=== PATIENT | male | born 1955 | race Caucasian/White ===

== ENCOUNTER 2021-01-12 11:07 | Emergency (ER) | payer OTHER, SELFPAY ==
[2021-01-12 11:05] VITALS: BP 148/91; PULSE 93; RESP 17; TEMP 36.6; O2SAT 99; BMI 26.2
[2021-01-12] MEDS: predniSONE 20 MG TABLET 60 MG PO (12:12)
--- NOTE | 2021-01-12 12:13 | ED.BACK ---
HPI - Back Pain/Injury General Chief Complaint: Back Pain/Injury Stated Complaint: Chronic back pain, increased today Time Seen by Provider: 01/12/21 11:07 Source: patient and EMS Mode of arrival: EMS Limitations: no limitations History of Present Illness HPI Narrative: 65-year-old male with extensive problems with neck and back pain, radiculopathies and prior surgeries presents by EMS because of an increased presence of pain in his lumbar region. He denies any recent trauma, fever, use of blood thinners or IV drugs. He denies loss of control of bowel or bladder. He does have some radiation of pain into both hips and more significant pain into his right leg. He denies any lower extremity weakness or footdrop. He states he is currently out of his medications was treat his chronic pain but they are at the pharmacy. He states he is here because his fiancee made him come MD Complaint: back pain Onset (ago): hour(s) Duration: constant Similar Symptoms Previously: Yes Location: lumbar spine Severity: moderate Quality: burning and stabbing Radiation: right leg Exacerbating factors: movement Associated symptoms: difficulty walking Related Data Home Medications Medication Instructions Recorded Confirmed hydrocodone-acetaminophen [[place]] 1 tab PO PRN #0 07/14/17 Previous Rx's Medication Instructions Recorded ondansetron [Zofran ODT] 4 mg SUBLINGUAL Q6HP PRN #10 odt 07/14/17 prednisone See Rx Instructions .ROUTE 01/12/21 .COMPLEX #30 tab Allergies Allergy/AdvReac Type Severity Reaction Status Date / Time Sulfa (Sulfonamide Allergy Unknown ITCHING Verified 01/12/21 11:10 Antibiotics) [SULFA (SULFONAMIDE ANTIBIOTICS)] morphine [MORPHINE] AdvReac Unknown COMBATIVE Verified 01/12/21 11:10 Review of Systems Constitutional Constitutional: Denies chills, Denies fatigue, Denies fever(s), Denies frequent falls, Denies lethargy and Denies weakness Eyes Eyes: Denies change in vision, Denies eye discharge, Denies irritation and Denies loss of vision ENT Ears, Nose, Mouth, and Throat: Denies change in voice, Denies dizziness, Denies neck pain, Denies sore throat and Denies throat swelling Cardiovascular Cardiovascular: Denies chest pain, Denies irregular heart rhythm, Denies lightheadedness, Denies palpitations, Denies dyspnea, Denies dyspnea on exertion and Denies orthopnea Respiratory Respiratory: Denies cough, Denies dyspnea, Denies dyspnea on exertion and Denies wheezing Gastrointestinal Gastrointestinal: Denies abdominal pain, Denies change in bowel habits, Denies diarrhea, Denies nausea and Denies vomiting Musculoskeletal Musculoskeletal: Reports back pain, Denies neck pain and Denies numbness Integumentary/Breasts Skin/Breast: Denies pruritus, Denies erythema, Denies rash and Denies wounds Neurologic Neurologic: Denies behavioral changes, Denies confusion, Denies dizziness, Denies frequent falls, Denies loss of vision, Denies numbness and Denies weakness Psychiatric Psychiatric: Denies anxiety, Denies behavioral changes, Denies confusion, Denies depression, Denies homicidal ideation and Denies suicidal ideation Endocrine Endocrine: Denies fatigue, Denies flushing and Denies palpitations Hematologic/Lymphatic Hematologic/Lymphatic: Denies easy bruising Allergic/Immunologic Allergic/Immunologic: Denies urticaria, Denies throat swelling and Denies wheezing Patient History Social History Smoking Status: Unknown if ever smoked Smoking Status: Unknown if ever smoked alcohol intake frequency: holidays/special occasions only Substance Use Type: does not use Exam Narrative Exam Narrative: GENERAL: [65] year old patient appears stated age. Well-developed patient, in mild distress. HEAD: Atraumatic. Normocephalic. EYES: Pupils equal round and reactive. Extraocular motions intact. No scleral icterus. No injection or drainage. ENT: Nose without bleeding, purulent drainage. Throat without erythema, tonsillar hypertrophy or exudate. Airway patent. NECK: Trachea midline. Non tender CARDIOVASCULAR: Regular rate and rhythm without murmurs, gallops, or rubs. RESPIRATORY: Clear to auscultation. Breath sounds equal bilaterally. No wheezes, rales, or rhonchi. GASTROINTESTINAL: Abdomen soft, non-tender, nondistended. EXTREMITIES: No edema or joint tenderness. BACK: oil distributor tender but free of any obvious external abnormalities. Patient exam notes decreased range of motion and muscle spasm, but no CVA tenderness, or vertebral point tenderness. There are no symptoms of cauda equina such as saddle anesthesia, and decreased reflexes, decreased sensation or strength. NEURO: AOx3. SKIN: No rash or erythema of visible areas Initial Vital Signs Initial Vital Signs: Vital Signs Temperature 97.8 F 01/12/21 11:05 Pulse Rate 93 H 01/12/21 11:05 Respiratory Rate 17 01/12/21 11:05 Blood Pressure 148/91 H 01/12/21 11:05 Pulse Oximetry 99 01/12/21 11:05 Course Orders Ordered: Discontinued Medications Oxycodone/Acetaminophen (Oxycodone/Acetaminophen 5/325 Tablet) 1 tab PO NOW ONE Stop: 01/12/21 11:56 Last Admin: 01/12/21 12:13 Dose: Not Given Documented by: ETHEL Prednisone (Prednisone 20 Mg Tablet) 60 mg PO NOW ONE Stop: 01/12/21 11:56 Last Admin: 01/12/21 12:12 Dose: 60 mg Documented by: ETHEL Vital Signs Vital signs: Vital Signs - 8 hr 01/12/21 11:05 01/12/21 12:26 Temperature 97.8 F Pulse Rate 93 H 89 Respiratory Rate 17 Blood Pressure 148/91 H 144/81 H Pulse Oximetry 99 97 MDM - Back Pain/Injury MDM Narrative Medical decision making narrative: Multiple etiologies of back pain considered including; Epidural abscess, cauda equina, mass occupying lesion, and other considered however no red flag symptoms of any neuro surgical emergency are present such as saddle anesthesia, footdrop, extremity weakness or signs of epidural abscess such as fever. Return precautions given and questions answered to his apparent satisfaction Discharge Plan Departure Patient Disposition: Home Clinical Impression: Lumbar radiculopathy, acute Instructions: DI for Low Back Pain Activity Restrictions/Additional Instructions: *You have been diagnosed with [acute on chronic lumbar pain with radiculopathy] *What to do: *Please continue to take your regular medications as directed. [ x] New medication prescriptions sent to your pharmacy: [[facility] in [place] ] [ ] New medication written as a paper prescription [ ] No new medications given *Please follow up with your primary care provider in 2-3 days, call for an appointment. Let them know you were seen in the Emergency Department and that we ask that you be seen in follow up. We will electronically transmit a record of today's note if your PCP is in our system *If you do not have a primary care provider please contact the [facility] Resource line at [phone]. They will ask some questions about your medical history and help get you set up with a doctor in the community. *Return to Emergency Department if you should have any new, worsening or concerning symptoms, such as [fever greater than 101 F, shaking chills, worsening pain, persistent vomiting, loss of control of bowel or bladder, extremity weakness or other bothersome symptoms] Prescriptions: New prednisone 10 mg tablet See Rx Instructions .ROUTE .COMPLEX Qty: 30 RF: 0 No Action hydrocodone-acetaminophen [[place]] 10 MG/325 MG tablet 1 tab PO PRNQty: 0 RF: 0 ondansetron [Zofran ODT] 4 MG tablet,disintegrating 4 mg Sublingual Q6HP PRNQty: 10 RF: 0
[2021-01-12 12:26] VITALS: BP 144/81; PULSE 89; O2SAT 97
== END 2021-01-12 12:27 | disposition home or self-care (01) ==
PROVIDERS: Emergency Provider Emergency Medicine; PCP Nurse Practitioner
DX: M54.16 Radiculopathy, lumbar region (principal)
CPT/HCPCS: 99283